=== PATIENT | female | born 1995 | race Caucasian/White ===

== ENCOUNTER → 2025-10-22 | Outpatient (REF) | payer OTHER | LOC: M PLALAB 11:56 | PROVIDERS: ATTEND Student in an Organized Health Care Education/Training Program | DX: Z34.80 Encounter for supervision of other normal pregnancy, unspecified trimester (principal) ==

== ENCOUNTER → 2025-10-22 | Outpatient (CLI) | payer OTHER ==
[2025-10-22 15:12] LABS: PLATELET COUNT, AUTOMATED 229 10^3/uL (150-450)
[2025-10-22 15:17] LABS: ALT/SGPT 31 U/L (7.0-40); AST/SGOT 20 U/L (<34); CREATININE FOR GFR 0.68 MG/DL (0.55-1.30); GLOMERULAR FILTRATION RATE > 90.0 (>60); LDH LACTATE DEHYDROGENASE 144 U/L (120-246)
[2025-10-22 15:44] LABS: HIV 1&2 SCREEN NEGATIVE (NEGATIVE)
[2025-10-22 15:52] LABS: HEPATITIS C VIRUS ABY INDEX 0.02 INDEX (<0.8)
== END ==
LOC: M PLALAB 12:13
PROVIDERS: ATTEND Student in an Organized Health Care Education/Training Program
DX: Z34.80 Encounter for supervision of other normal pregnancy, unspecified trimester (principal)

== ENCOUNTER → 2025-11-19 | Outpatient (REF) | payer OTHER ==
[2025-11-19 14:21] LABS: TOTAL PROTEIN,RANDOM URINE < 6.0 MG/DL (0.0-14.0)
[2025-11-19 15:04] LABS: Trichomonas vaginalis (AMP) NOT DETECTED (NEGATIVE)
[2025-11-19 15:28] LABS: GC DNA AMPLIFICATION NEGATIVE (NEGATIVE)
== END ==
LOC: M SFHCWAGY 12:54
PROVIDERS: ATTEND Student in an Organized Health Care Education/Training Program
DX: Z34.80 Encounter for supervision of other normal pregnancy, unspecified trimester (principal)